=== PATIENT | male | born 1975 | race African-American/Black ===

== ENCOUNTER 2024-01-23 14:32 | Outpatient (AMB) | payer OTHER, SELFPAY ==
[2024-01-23 14:34] VITALS: BP 160/108; PULSE 84; O2SAT 97; BMI 27.2
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
== END 2024-01-23 14:55 | disposition home or self-care (01) ==
PROVIDERS: PCP Family Medicine; Visit Provider Internal Medicine Hypertension Specialist
DX: I12.9 Hypertensive chronic kidney disease with stage 1 through stage 4 chronic kidney disease, or unspecified chronic kidney disease (principal); N18.9 Chronic kidney disease, unspecified; Z90.5 Acquired absence of kidney
CPT/HCPCS: 99204

== ENCOUNTER → 2024-01-23 14:32 | Outpatient (BNVA) | payer OTHER, SELFPAY | PROVIDERS: PCP Family Medicine; Visit Provider Internal Medicine Hypertension Specialist ==

== ENCOUNTER 2024-01-23 14:59 | Outpatient (REF) | payer OTHER, SELFPAY ==
[2024-01-23 17:57] LABS: MANUAL DIFF FLAG NO
[2024-01-23 18:03] LABS: Basophils Percent Auto 0.9 % (0-2); Eosinophils Absolute Auto 0.1 X10*3/uL (0.0-0.4); Eosinophils Percent Auto 1.7 % (0-4); Hematocrit 39.4 % (42.0-52.0); Hemoglobin 13.4 g/dl (14.0-18.0); Imm Gran Abs Auto 0.01 X10*3/uL (0.00-0.03); Imm Gran Pct Auto 0.2 % (0.0-0.4); Lymphocytes Absolute Auto 1.8 X10*3/uL (1.2-4.9); Lymphocytes Percent Auto 41.4 % (20-40); Mean Corpuscular Hemoglobin 29.1 pg (27.0-33.0); Mean Corpuscular Volume 85.7 fL (80.0-98.0); Monocytes Absolute Auto 0.4 X10*3/uL (0.1-1.2); Monocytes Percent Auto 8.3 % (2-11); Neutrophils Percent Auto 47.5 % (45-73); Platelet Count 302 X10*3/uL (160-400); Red Cell Distribution Width 12.9 % (11.0-16.0); White Blood Count 4.2 X10*3/uL (4.8-10.8)
[2024-01-23 18:21] LABS: Appearance Urine Clear; Color Urine Yellow; Glucose Urine UA Negative (Negative); Leukocyte Esterase Urine Negative (Negative); Nitrite Urine Negative (Negative); PH 5.5 (5.0-9.0); UMIC TRIGGER UA YES; Urine Blood Negative (Negative); Urine Ketones Negative (Negative); Urine Protein 100 (2+) mg/dL (Neg-Trace)
[2024-01-23 18:27] LABS: Bacteria Urine None Seen (None Seen); Hyaline Casts Urine 0-2 /LPF (0-2); RBC Urine 0-2 /HPF (0-2); Squamous Epithelial Cell Urine 0-2 /HPF (0-2); WBC Urine 0-5 /HPF (0-5)
[2024-01-23 18:48] LABS: Alanine Aminotransferase 20 U/L (0-40); Albumin Level 4.2 g/dL (3.5-5.0); Alkaline Phosphatase 72 U/L (39-117); Anion Gap 16 (12-20); Aspartate Amino Transferase 17 U/L (5-37); Bilirubin Total 0.3 mg/dL (0.0-1.0); Blood Urea Nitrogen 26 mg/dL (9-16); Calcium 9.2 mg/dL (8.4-10.2); Carbon Dioxide 24 mmol/L (22-29); Chloride 111 mmol/L (96-108); Estimated Glomerular Filt Rate 38; Glucose Random 81 mg/dL (60-115); Potassium 4.1 mmol/L (3.3-5.1); Sodium 147 mmol/L (135-145)
[2024-01-23 19:00] LABS: Creatinine Urine 210.26 mg/dL; Total Protein Urine Random 66 mg/dL (<12)
[2024-01-24 05:34] LABS: Parathyroid Hormone Intact 127.9 pg/mL (8.7-77.1)
== END 2024-01-23 15:00 | disposition home or self-care (01) ==
LOC: HO.HKASLDS 14:59
PROVIDERS: Visit Provider Internal Medicine Hypertension Specialist
DX: I12.9 Hypertensive chronic kidney disease with stage 1 through stage 4 chronic kidney disease, or unspecified chronic kidney disease (principal); N18.30 Chronic kidney disease, stage 3 unspecified; Z90.5 Acquired absence of kidney
CPT/HCPCS: 36415; 80053; 81001; 82570; 83970; 84156; 85025

== ENCOUNTER 2024-02-06 11:42 | Outpatient (AMB) | payer OTHER, SELFPAY ==
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
[2024-02-06 11:49] VITALS: BP 128/98; PULSE 86; O2SAT 96; BMI 27.0
== END 2024-02-06 12:01 | disposition home or self-care (01) ==
PROVIDERS: PCP Family Medicine; Visit Provider Internal Medicine Hypertension Specialist
DX: I12.9 Hypertensive chronic kidney disease with stage 1 through stage 4 chronic kidney disease, or unspecified chronic kidney disease (principal); N18.30 Chronic kidney disease, stage 3 unspecified; Z90.5 Acquired absence of kidney
CPT/HCPCS: 99214

== ENCOUNTER 2024-02-06 13:38 | Outpatient (REF) | payer OTHER, SELFPAY ==
--- NOTE | ~2024-02-06 | US_ITS ---
EXAMINATION: US RETROPERITONEAL LIMITED (RENAL ONLY) CLINICAL INFORMATION: Chronic kidney disease, unspecified. COMPARISON: None available. TECHNIQUE: Real-time imaging of the kidneys. FINDINGS: RIGHT KIDNEY: 11.4 x 5.9 x 5.6 cm (SAG x AP x TRV). The kidney is normal in size, contour, and echogenicity. Renal cortical thickness is normal. No renal calculi or hydronephrosis. A benign lateral mid renal 1.0 cm Bosniak class I renal cyst is noted, which requires no additional imaging or follow up. No solid renal masses are seen. LEFT KIDNEY: Surgically absent. US/US renal BI IMPRESSION: Normal-appearing right kidney. Left kidney not present.
== END 2024-02-06 13:39 | disposition home or self-care (01) ==
LOC: HO.US 13:38
PROVIDERS: PCP Family Medicine; Visit Provider Internal Medicine Hypertension Specialist
DX: I12.9 Hypertensive chronic kidney disease with stage 1 through stage 4 chronic kidney disease, or unspecified chronic kidney disease (principal); N18.9 Chronic kidney disease, unspecified; Z90.5 Acquired absence of kidney
CPT/HCPCS: 76775

== ENCOUNTER 2024-04-16 11:44 | Outpatient (AMB) | payer OTHER, SELFPAY ==
[2024-04-16 11:45] VITALS: BP 96/68; PULSE 88; O2SAT 95; BMI 26.3
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
== END 2024-04-16 11:58 | disposition home or self-care (01) ==
PROVIDERS: PCP Family Medicine; Visit Provider Internal Medicine Hypertension Specialist
DX: I12.9 Hypertensive chronic kidney disease with stage 1 through stage 4 chronic kidney disease, or unspecified chronic kidney disease (principal); N18.9 Chronic kidney disease, unspecified; Z90.5 Acquired absence of kidney
CPT/HCPCS: 99214

== ENCOUNTER → 2024-04-16 11:44 | Outpatient (BNVA) | payer OTHER, SELFPAY | PROVIDERS: PCP Family Medicine; Visit Provider Internal Medicine Hypertension Specialist ==

== ENCOUNTER 2024-04-21 10:17 | Outpatient (REF) | payer OTHER, SELFPAY ==
[2024-04-21 12:22] LABS: Alanine Aminotransferase 17 U/L (0-40); Albumin Level 4.2 g/dL (3.5-5.0); Alkaline Phosphatase 79 U/L (39-117); Anion Gap 13 (12-20); Aspartate Amino Transferase 14 U/L (5-37); Bilirubin Total 0.3 mg/dL (0.0-1.0); Blood Urea Nitrogen 26 mg/dL (9-16); Calcium 9.7 mg/dL (8.4-10.2); Carbon Dioxide 24 mmol/L (22-29); Chloride 108 mmol/L (96-108); Estimated Glomerular Filt Rate 32; Glucose Random 114 mg/dL (60-115); Potassium 3.5 mmol/L (3.3-5.1); Sodium 141 mmol/L (135-145); Total Protein 7.3 g/dL (6.5-8.0)
[2024-04-21 13:36] LABS: Appearance Urine Clear; Color Urine Yellow; Glucose Urine UA Negative (Negative); Leukocyte Esterase Urine Negative (Negative); Nitrite Urine Negative (Negative); PH 5.5 (5.0-9.0); UMIC TRIGGER UA YES; Urine Blood Negative (Negative); Urine Ketones Trace mg/dL (Negative); Urine Protein 30 (1+) mg/dL (Neg-Trace)
[2024-04-21 13:51] LABS: Bacteria Urine None Seen (None Seen); Hyaline Casts Urine 0-2 /LPF (0-2); RBC Urine 0-2 /HPF (0-2); Squamous Epithelial Cell Urine 0-2 /HPF (0-2); WBC Urine 0-5 /HPF (0-5)
[2024-04-22 09:44] LABS: Complement C3 129 mg/dL (82-185)
[2024-04-22 16:23] LABS: Neutrophil Cyto Ab Screen NEGATIVE (NEGATIVE)
[2024-04-22 22:19] LABS: Prot Elec - Albumin 4.1 g/dL (3.8-4.8); Prot Elec - Alpha1 0.3 g/dL (0.2-0.3); Prot Elec - Alpha2 0.8 g/dL (0.5-0.9); Prot Elec - Beta 1 0.4 g/dL (0.4-0.6); Prot Elec - Beta 2 0.4 g/dL (0.2-0.5); Prot Elec - Gamma 0.9 g/dL (0.8-1.7)
[2024-04-23 23:03] LABS: Myeloperoxidase Antibody <1.0 AI
== END 2024-04-21 10:18 | disposition home or self-care (01) ==
LOC: HO.LAB 10:17
PROVIDERS: PCP Family Medicine; Visit Provider Internal Medicine Hypertension Specialist
DX: N18.9 Chronic kidney disease, unspecified (principal); I10 Essential (primary) hypertension; Z90.5 Acquired absence of kidney
CPT/HCPCS: 36415; 80053; 81001; 84165; 86021; 86036; 86160

== ENCOUNTER 2024-10-01 10:16 | Outpatient (AMB) | payer OTHER, SELFPAY ==
[2024-10-01 10:21] VITALS: BP 130/70; PULSE 102; O2SAT 96; BMI 27.2
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
--- OUTSIDE RECORDS SUMMARY | 2024-10-01 11:11 | XMS_ITS | Encounter Summary ---
Author Organization [facility], Address [address] [place] [address] Phone Care Team Providers Care Economic Development Manager Name Role Phone Rachel Jewell TOWER OBSERVER Primary Care Provider Unav ailable Encounter Details Date Type Department Care Team (Late st Contact Info) Description 09/17/2020 Orders Only [facility] - [address] [facility] [address] [place] [address] Shelley Avila MD Chronic kidney disease stage 3 Social History Tobacco Use Types Packs/Day Years Used Date Smoking Tobacco: Never Alcohol Use Standard Drinks/Week Comments Yes 0 (1 standard drink = 0.6 oz pure alcohol) Alcoholic Drinks/day: Occasional social drink Sex and Gender Information Value Date Recorded Sex Assigned at Not on file Legal Sex Male 4:37 PM EST Gender Identity Not on file Sexual Orientation Not on file documented as of this encounter Plan of Treatment Not on file documented as of this encounter Visit Diagnoses Diagnosis Chronic kidney disease stage 3 (HCC) documented in this encounter Care Teams Economic Development Manager Relationship Specialty Start Date End Date Rachel Jewell NP [address] [place] [phone] PCP - General Nurse Practitioner 05/09/23 3 documented as of this encounter
--- OUTSIDE RECORDS SUMMARY | 2024-10-01 11:12 | XMS_ITS | Clinical Summary ---
Author Organization [facility] it Address [address] [place] [address] Care Team Providers Care Database Marketing Analyst Name Role Phone Unavailable Primary Care Provider Unavailabl e Social History Tobacco Use Types Packs/Day Years Used Date Smoking Tobacco: Never Assessed Sex and Gender Information Value Date Recorded Sex Assigned at Not on file Gender Identity Not on file Sexual Orientation Not on file Plan of Treatment Health Maintenance Due Date Last Done Comments DTaP,Tdap,and Td Vaccines (1 - Tdap) 1993 Hepatitis B Vaccines (1 of 3 - 19+ 3-dose series) 1993 Cholesterol Screening (Lipid Panel) 07/29/2022 Colorectal Cancer Screening: Colonoscopy 07/29/2022 Depression Screening 07/29/2022 HIV Screening 07/29/2022 Hepatitis C Screening 07/29/2022 Social Influencers of Health Screening 07/29/2022 COVID-19 Vaccine (2023-2 5 season) 2024 Influenza Vaccine (#1) 2024 HIB Vaccines Aged Out No longer eligi ble based on patient's age to complete this topic HPV Vaccines Aged Out No longer eligi ble based on patient's age to complete this topic Hepatitis A Vaccines Aged Out No long er eligible based on patient's age to complete this topic IPV Vaccines Aged Out No longer eligi ble based on patient's age to complete this topic MMR Vaccines Aged Out No longer eligi ble based on patient's age to complete this topic Meningococcal ACWY Vaccine Aged Out N o longer eligible based on patient's age to complete this topic Pneumococcal Vaccine: Pediat rics (0 to 5 Years) and At-Risk Patients (6 to 64 Years) Aged Out No longer eligible b ased on patient's age to complete this topic RSV Immunization Patients Un efra 20 months Aged Out No longer eligible b ased on patient's age to complete this topic Varicella Vaccines Aged Out No longer eligible based on patient's age to complete this topic
--- OUTSIDE RECORDS SUMMARY | 2024-10-01 11:12 | XMS_ITS | Encounter Summary ---
Author Organization [facility], Address [address] [place] [address] Phone Care Team Providers Care Manager Payer Name Role Phone Rachel Jewell MANAGER GROCERY Primary Care Provider Unav ailable Encounter Details Date Type Department Care Team (Late st Contact Info) Description 12/22/2019 Orders Only [facility] - [address] [facility] [address] [place] [address] Shelley Avila MD Chronic kidney disease stage 3 (HCC) Social History Tobacco Use Types Packs/Day Years [...] (HCC) documented in this encounter Care Teams Manager Payer Relationship Specialty Start Date End Date Rachel Jewell NP [address] [place] [phone] PCP - General Nurse Practitioner 05/09/23 3 documented as of this encounter
--- OUTSIDE RECORDS SUMMARY | 2024-10-01 11:12 | XMS_ITS | Clinical Summary ---
Author Organization [facility], Address [address] [place] [address] [place] [phone] Phone Care Team Providers Care Plastic Surgery Assistant Name Role Phone Unavailable Primary Care Provider Unavailabl e Allergies No known active allergies Medications triamterene-hyd roCHLOROthiazid e (DYAZIDE) 37.5-25 MG per capsule Take 1 capsule by mouth 1 (one) time each day Active sildenafil (VIAGRA) 100 MG tablet Take 1 tablet by mouth 1 (one) time each day Active amLODIPine (NORVASC) 5 MG tablet Take 1 tablet by mouth 1 (one) time each day Active lisinopril (PRINIVIL,ZESTR IL) 40 MG tablet Take 40 mg by mouth daily 09/03/2020 Active sertraline (ZOLOFT) 50 MG tablet Comments: Filled Date: Nov 16 2014 12:00AM Patient Notes: TK ONE AND SS TS PO QD Duration: 30 04/16/2014 Active ergocalciferol 1.25 MG (96193 UT) capsule Take 1 capsule (50,000 Units total) by mouth 1 (one) time per week 12 capsule 11/24/2022 Active Active Problems Problem Noted Date Diagnosed Date Hypertensive renal disease 04/05/2021 Hyperparathyroidism due to renal insufficiency 0 04/05/2021 Stage 3b chronic kidney disease 10/11/2020 Essential hypertension 09/19/2019 Proteinuria 09/19/2019 Family History Medical History Relation Comments Hypertension Mother Relation Status Comments Mother Social History Tobacco Use Types Packs/Day Years Used Date Smoking Tobacco: Never Alcohol Use Standard Drinks/Week Comments Yes 0 (1 standard drink = 0.6 oz pure alcohol) Alcoholic Drinks/day: Occasional social drink Sex and Gender Information Value Date Recorded Sex Assigned at Not on file Legal Sex Male 4:37 PM EST Gender Identity Not on file Sexual Orientation Not on file Last Filed Vital Signs Vital Sign Reading Time Taken Comments Blood Pressure 160/88 05/09/2023 1:11 PM EDT Pulse 68 05/09/2023 1:11 PM EDT Temperature 36.7 ??C (98 ??F) 09/22/2019 1:19 PM EST Respiratory Rate 14 05/09/2023 1:11 PM EDT Oxygen Saturation - - Inhaled Oxygen Concentration - - Weight 80.7 kg (178 lb) 05/09/2023 1:11 PM EDT Height 172.7 cm (5' 8 ) 05/09/2023 1:11 PM EDT Body Mass Index 27.06 05/09/2023 1:11 PM EDT Plan of Treatment Health Maintenance Due Date Last Done Comments Pneumococcal Vaccine: Pediat rics (0 to 5 Years) and At-Risk Patients (6 to 64 Years) (1 of 2 - PCV) 1981 Hepatitis B Vaccine (1 of 3 - 19+ 3-dose series) 12/30 Colorectal Cancer Screening: Annual FOBT 12/31/2023 Colorectal Cancer Screening: Colonoscopy 12/31/2023 Colorectal Cancer Screening: Sigmoidoscopy 12/31/2023 Influenza Vaccine (#1) 2024 [place] [id number] [place] [id number]
--- OUTSIDE RECORDS SUMMARY | 2024-10-01 11:12 | XMS_ITS | Encounter Summary ---
Author Organization [facility], Address [address] [place] [address] Phone Care Team Providers Care Media Sales Representative Name Role Phone Rachel Jewell FINANCIAL REPORTING ADVISOR Primary Care Provider Unav ailable Encounter Details Date Type Department Care Team (Late st Contact Info) Description 03/26/2020 Orders Only [facility] [address] [facility] [address] [place] [phone] Shelley Avila MD Chronic kidney disease stage [...] (HCC) documented in this encounter Care Teams Media Sales Representative Relationship Specialty Start Date End Date Rachel Jewell NP [address] [place] [phone] PCP - General Nurse Practitioner 05/09/23 3 documented as of this encounter
== END 2024-10-01 10:31 | disposition home or self-care (01) ==
PROVIDERS: PCP Family Medicine; Visit Provider Internal Medicine Hypertension Specialist
DX: I12.9 Hypertensive chronic kidney disease with stage 1 through stage 4 chronic kidney disease, or unspecified chronic kidney disease (principal); N18.9 Chronic kidney disease, unspecified; Z90.5 Acquired absence of kidney
CPT/HCPCS: 99214